=== PATIENT | female | born 1985 | race American Indian/Alaskan Native ===

== ENCOUNTER 2017-10-14 18:39 | Emergency (ER) | payer MEDICAID ==
[2017-10-14 20:16] LABS: Basophils % (Auto) 0.3 % (0.0-1.8); Eosinophils % (Auto) 0.5 % (0.0-4.3); Hematocrit 38.5 % (30.3-42.9); Hemoglobin 12.8 gm/dl (10.1-14.3); Lymphocytes # (Auto) 2.1 K/mm3 (1.2-5.4); Lymphocytes % (Auto) 29.6 % (13.4-35.0); Mean Corpuscular HGB Conc 33 % (30-34); Mean Corpuscular Hemoglobin 29 pg (28-32); Mean Corpuscular Volume 88 fl (79-97); Monocytes # (Auto) 0.4 K/mm3 (0.0-0.8); Monocytes % (Auto) 5.1 % (0.0-7.3); Platelet Count 254 K/mm3 (140-440); Red Blood Count 4.38 M/mm3 (3.65-5.03); Red Cell Distribution Width 13.6 % (13.2-15.2)
[2017-10-14 20:36] LABS: Alanine Aminotransferase 14 units/L (7-56); Albumin 4.3 g/dL (3.9-5); BUN/Creatinine Ratio 19; Blood Urea Nitrogen 13 mg/dL (7-17); Calcium 9.4 mg/dL (8.4-10.2); Hemolysis Index 5
[2017-10-14 21:02] LABS: HCG Qualitative,Urine Negative (Negative)
[2017-10-14 21:41] LABS: Bacteria,Urine 1+ /HPF (Negative); Bilirubin,Urine NEG (Negative); Blood,Urine NEG (Negative); Color,Urine Yellow (Yellow); Mucus,Urine FEW /HPF; Urobilinogen,Urine < 2.0 mg/dL (<2.0)
[2017-10-14 23:46] VITALS: BP 114/79
--- NOTE | 2017-10-15 00:36 | Emergency Department Report ---
ED General Adult HPI - General Chief complaint: Abdominal Pain Stated complaint: LEFT SIDE ABDOMINAL/BACK PAIN Time Seen by Provider: 10/14/17 23:35 Source: patient Mode of arrival: Ambulatory Limitations: No Limitations - History of Present Illness Initial comments: This is a 32-year-old female who is unknown to this provider previously, not currently , surgical history significant for . Patient presents to the ER with a complaint of resolved left lower quadrant abdominal discomfort, and left leg dysesthesia, which she indicates started while she was defecating. She reports that her leg began to cramp on the anterior lateral aspect of her thigh, and this involved her left lower quadrant and then her left lower back. This lasted for around a half hour. As cramping in nature. It did not have exacerbating or relieving factors. It started at 5:00 PM on the preceding day. It is now resolved. She has no complaints. She specifically denies headache, neck pain, chest pain, abdominal pain, shortness of breath, irritative urinary symptoms, feminine discharge. She indicates that she feels somewhat constipated from time to time. -: Sudden Location: abdomen, left, lower extremity Radiation: non-radiation Severity scale (0 -10): 3 Quality: aching Consistency: now resolved Improves with: none Worsens with: none Associated Symptoms: denies other symptoms. denies: confusion, chest pain, cough, diaphoresis, fever/chills, headaches, loss of appetite, malaise, nausea/ vomiting, rash, seizure, shortness of breath, syncope, weakness - Related Data Home Medications Medication Instructions Recorded Confirmed Last Taken Amoxicillin [Trimox CAP] 500 PO BID 03/28/13 03/28/13 03/27/13 17:00 500mg HYDROcodone/ACETAMINOPHEN 5 PO Q4-6H 03/28/13 03/28/13 Unknown [Hydrocodon-Acetaminoph 2.5-325 mg] Prednisone 20 mg PO BID 03/28/13 03/28/13 03/26/13 17:00 20mg Previous Rx's Medication Instructions Recorded Last Taken Type Nystatin [Nystatin SUSP] 1 tsp PO QID #140 ml 03/28/13 Unknown Rx Allergies Allergy/AdvReac Type Severity Reaction Status Date / Time amoxicillin Allergy Hives Verified 10/14/17 19:46 ED Review of Systems ROS: Stated complaint: LEFT SIDE ABDOMINAL/BACK PAIN Other details as noted in HPI Constitutional: denies: malaise Eyes: denies: eye discharge ENT: denies: epistaxis Respiratory: denies: cough Cardiovascular: denies: chest pain Gastrointestinal: abdominal pain Genitourinary: denies: dysuria Musculoskeletal: back pain, arthralgia Skin: denies: lesions Neurological: paresthesias Psychiatric: anxiety ED Past Medical Hx - Past Medical History Previous Medical History?: No - Surgical History Additional Surgical History: 2011 - Social History Smoking Status: Never Smoker Substance Use Type: Alcohol - Medications Home Medications: Home Medications Medication Instructions Recorded Confirmed Last Taken Type Amoxicillin [Trimox CAP] 500 PO BID 03/28/13 03/28/13 03/27/13 17:00 History 500mg HYDROcodone/ACETAMINOPHEN 5 PO Q4-6H 03/28/13 03/28/13 Unknown History [Hydrocodon-Acetaminoph 2.5-325 mg] Nystatin [Nystatin SUSP] 1 tsp PO QID #140 ml 03/28/13 Unknown Rx Prednisone 20 mg PO BID 03/28/13 03/28/13 03/26/13 17:00 History 20mg ED Physical Exam - General Limitations: No Limitations General appearance: alert, in no apparent distress - Head Head exam: Present: atraumatic, normocephalic - Eye Eye exam: Present: normal appearance, EOMI. Absent: nystagmus - ENT ENT exam: Present: normal exam, normal orophraynx, mucous membranes moist, normal external ear exam - Neck Neck exam: Present: normal inspection, full ROM. Absent: tenderness, meningismus - Respiratory Respiratory exam: Present: normal lung sounds bilaterally. Absent: respiratory distress - Cardiovascular Cardiovascular Exam: Present: regular rate, normal rhythm, normal heart sounds. Absent: bradycardia, tachycardia, irregular rhythm, systolic murmur, diastolic murmur, rubs, gallop - GI/Abdominal GI/Abdominal exam: Present: soft, normal bowel sounds. Absent: distended, tenderness, guarding, rebound, rigid, pulsatile mass - Extremities Exam Extremities exam: Present: normal inspection (escorted by ACE Lubin ), full ROM, normal capillary refill, other (2+ pulses noted in the bilateral upper, lower extremities. Compartments soft. No long bony tenderness. The pelvis is stable.). Absent: tenderness, pedal edema, joint swelling, calf tenderness - Back Exam Back exam: Present: normal inspection, full ROM. Absent: tenderness, CVA tenderness (R), paraspinal tenderness, vertebral tenderness - Neurological Exam Neurological exam: Present: alert, oriented X3, CN II-XII intact, normal gait, reflexes normal (downgoing plantar reflexes bilaterally. No clonus.), other ( Extraocular movements intact. Tongue midline. No facial droop. Facial sensation intact to light touch in the V1, V2, V3 distribution bilaterally. 5 and 5 strength in 4 extremities.. Sensation is intact to light touch in 4 extremities.). Absent: motor sensory deficit - Psychiatric Psychiatric exam: Present: normal affect, normal mood - Skin Skin exam: Present: warm, dry, intact, normal color. Absent: rash ED Course Vital Signs 10/14/17 10/14/17 19:46 23:44 Temperature 98.1 F 97.4 F L Pulse Rate 67 75 Respiratory 16 18 Rate Blood Pressure 107/68 Blood Pressure 114/79 [Left] O2 Sat by Pulse 100 98 Oximetry - Reevaluation(s) Reevaluation #1: 10/15/17 00:39 Patient endorses no bladder or bowel retention or incontinence or saddle anesthesia. ED Medical Decision Making - Lab Data Result diagrams: 10/14/17 19:59 10/14/17 19:59 Vital Signs 10/14/17 10/14/17 19:46 23:44 Temperature 98.1 F 97.4 F L Pulse Rate 67 75 Respiratory 16 18 Rate Blood Pressure 107/68 Blood Pressure 114/79 [Left] O2 Sat by Pulse 100 98 Oximetry Lab Results 10/14/17 10/14/17 10/14/17 Range/Units 19:59 19:59 20:48 WBC 7.1 (4.5-11.0) K/mm3 RBC 4.38 (3.65-5.03) M/mm3 Hgb 12.8 (10.1-14.3) gm/dl Hct 38.5 (30.3-42.9) % MCV 88 (79-97) fl MCH 29 (28-32) pg MCHC 33 (30-34) % RDW 13.6 (13.2-15.2) % Plt Count 254 (140-440) K/mm3 Lymph % (Auto) 29.6 (13.4-35.0) % [place] % (Auto) 5.1 (0.0-7.3) % Eos % (Auto) 0.5 (0.0-4.3) % Baso % (Auto) 0.3 (0.0-1.8) % Lymph # 2.1 (1.2-5.4) K/mm3 [place] # 0.4 (0.0-0.8) K/mm3 Eos # 0.0 (0.0-0.4) K/mm3 Baso # 0.0 (0.0-0.1) K/mm3 Seg Neutrophils % 64.5 (40.0-70.0) % Seg Neutrophils # 4.6 (1.8-7.7) K/mm3 Sodium 137 (137-145) mmol/L Potassium 4.0 (3.6-5.0) mmol/L Chloride 99.9 (98-107) mmol/L Carbon Dioxide 25 (22-30) mmol/L Anion Gap 16 mmol/L BUN 13 (7-17) mg/dL Creatinine 0.7 (0.7-1.2) mg/dL Estimated GFR > 60 ml/min BUN/Creatinine Ratio 19 % Glucose 82 (65-100) mg/dL Calcium 9.4 (8.4-10.2) mg/dL Total Bilirubin 0.40 (0.1-1.2) mg/dL AST 19 (5-40) units/L ALT 14 (7-56) units/L Alkaline Phosphatase 52 (35-129) units/L Total Protein 7.8 (6.3-8.2) g/dL Albumin 4.3 (3.9-5) g/dL Albumin/Globulin Ratio 1.2 % Urine Color Yellow (Yellow) Urine Turbidity Clear (Clear) Urine pH 6.0 (5.0-7.0) Ur Specific [place] 1.028 (1.003-1.030) Urine Protein 30 mg/dl (Negative) mg/dL Urine Glucose (UA) Neg (Negative) mg/dL Urine Ketones 20 (Negative) mg/dL Urine Blood Neg (Negative) Urine Nitrite Neg (Negative) Ur Reducing Substances Not Reportable Urine Bilirubin Neg (Negative) Urine Ictotest Not Reportable Urine Urobilinogen < 2.0 (<2.0) mg/dL Ur Leukocyte Esterase Tr (Negative) Urine WBC (Auto) 2.0 (0.0-6.0) /HPF Urine RBC (Auto) 2.0 (0.0-6.0) /HPF U Epithel Cells (Auto) 8.0 (0-13.0) /HPF Urine Bacteria (Auto) 1+ (Negative) /HPF Urine Mucus Few /HPF Urine HCG, Qual Negative (Negative) - Medical Decision Making Differential diagnosis, including but not limited to: Neuropraxia, peripheral neuropathy, constipation Assessment and plan: 32-year-old female with resolved complaints. She is afebrile with reassuring vital signs, clinically sober, with a nontender belly, appropriate and normal laboratory studies, normal vital signs, and a normal neurologic examination which is not consistent with a AAA, or epidural compression syndrome. She has no pain at this time and is medically suitable for discharge. She'll be discharged with expectant management, return precautions are reviewed. Critical care attestation.: If time is entered above; I have spent that time in minutes in the direct care of this critically ill patient, excluding procedure time. ED Disposition Clinical Impression: History of burning pain in lower extremity Disposition: DC-01 TO HOME OR SELFCARE Is pt being admited?: No Does the pt Need Aspirin: No Condition: Stable Instructions: Lumbar Radiculopathy (ED) Additional Instructions: Avoid heavy lifting. Lift and engage in physical activities as tolerated. Use ice packs alternating with heat as needed for pain. Take acetaminophen alternating with ibuprofen [id number] with food as needed for pain. Return to the ER right away with new pain, worsened pain, migration of pain, intractable nausea or vomiting, fevers or chills, weakness, numbness, unsteady gait, bladder or bowel retention or incontinence. Referrals: PRIMARY MD BALA [Primary Care Provider] - 3-5 Days HARVEY KERR MD [Staff Physician] - 3-5 Days [facility] [Provider Group] - 3-5 Days
== END 2017-10-15 01:00 | disposition home or self-care (01) ==
LOC: ED 18:39
DX: R10.32 Left lower quadrant pain (principal)
CPT/HCPCS: 36415; 80053; 81001; 81025; 85025; 99283